=== PATIENT | female | born 1985 | race Caucasian/White ===

== ENCOUNTER 2018-10-07 04:19 | Emergency (ER) | payer OTHER ==
[~2018-10-07] VITALS: Ht 162.6 cm; Wt 68.0 kg
[~2018-10-07 04:19] MED LIST: NO HOME MEDS
[2018-10-07 04:24] VITALS: BP 134/84
[2018-10-07] MEDS ORDERED: HYDROcodone/acetaminophen 5mg/325mg tablet PO ONE (04:45)
[2018-10-07] MEDS ORDERED: ondansetron 4mg rapidly disintigrating tab PO ONE (04:45)
[2018-10-07] MEDS ORDERED: HYDR-3965 PO (04:46)
== END 2018-10-07 05:44 | disposition home or self-care (01) ==
LOC: ER 04:21
DX: S82.54XA Nondisplaced fracture of medial malleolus of right tibia, initial encounter for closed fracture (principal); Z79.899 Other long term (current) drug therapy; W17.89XA Other fall from one level to another, initial encounter; Y93.89 Activity, other specified; Y92.89 Other specified places as the place of occurrence of the external cause; Y99.8 Other external cause status
CPT/HCPCS: 29515; 73610; 99284